=== PATIENT | female | born 1930 | race Caucasian/White ===

== ENCOUNTER → 2016-07-13 | Outpatient (CLI) | payer MEDICARE, OTHER ==
[~2016-07-13] MED LIST: ALBUPOW26 XX; ALL300T PO; ASPI81TA27 PO; CYCL-181 PO; GABA300C PO; MELO-61 PO; MOME200A INH; PRO10T PO; TEMA15CA91 PO; [UNRECOGNIZED DRUG - CODE] EX
[2016-07-13 13:20] VITALS: BP 125/76
[2016-07-13 13:58] VITALS: BP 123/73
[2016-07-13 16:39] LABS: Urine Bilirubin Negative (Negative); Urine Blood Negative /uL (Negative); Urine Color Yellow (Yellow); Urine Glucose Normal (Normal); Urine Ketone Negative (Negative); Urine Nitrite Negative (Negative)
[2016-07-13 17:05] LABS: Albumin 3.1 g/dL (3.4-5.0); BUN/Creatinine Ratio 21.9; Bilirubin, Total 0.4 mg/dL (0.2-1.0); Calcium 8.7 mg/dL (8.5-10.1); Potassium 3.7 mmol/L (3.5-5.1); Total Protein 6.6 g/dL (6.4-8.2)
[2016-07-13 17:08] LABS: INR 1.08 (0.9-1.15); Partial Thromboplastin Time 26.8 sec (22.64-33.71); Prothrombin Time 11.1 sec (9.37-12.3)
[2016-07-13 18:02] LABS: Basophils # (auto) 0 uL; DEFINITIVE VIEW TRANSMISSION; Eosinophils # (auto) 0.1 uL; Lymphocytes # (auto) 0.7 uL; Monocytes # (auto) 0.5 uL
[2016-07-13 18:06] LABS: White Blood Cell 7.1 10^3/uL (4.4-10.8)
[2016-07-13 18:07] LABS: Basophils % (auto) 0.6 % (0.0-2.0); Eosinophils % (auto) 0.8 % (0.0-7.0); Lymphocytes % (auto) 10.3 % (10.0-50.0); Monocytes % (auto) 6.4 % (0.0-12.0); Neutrophils # (auto) 5.8 uL; Neutrophils % (auto) 81.9 % (37.0-80.0)
[2016-07-13 18:08] LABS: Hematocrit 39.7 % (36.0-46.0); Hemoglobin 12.2 g/dL (12.2-16.2); Mean Corpuscular Hemoglobin 29.7 pg (28.0-32.0); Mean Corpuscular Hgb Conc. 30.7 g/dL (32.0-36.0); Mean Corpuscular Volume 96.8 fL (80.0-100.0); Mean Platelet Volume 10.5 fL (7.4-10.4); Platelet Count (auto) 307 10^3/uL (140-450); Red Cell Distribution Width 16.5 % (11.6-16.0)
== END | disposition home or self-care (01) ==
LOC: CHF HDHVI 13:22
PROVIDERS: ATTEND Internal Medicine Cardiovascular Disease
DX: I10 Essential (primary) hypertension (principal); D64.9 Anemia, unspecified; R79.1 Abnormal coagulation profile; N39.0 Urinary tract infection, site not specified
CPT/HCPCS: 36415; 80053; 81003; 85025; 85610; 85730; G0463

== ENCOUNTER → 2016-08-06 | Outpatient (CLI) | payer MEDICARE, OTHER ==
[~2016-08-06] MED LIST changes: +CYANOCOBALAMIN (B-12) 1000 MCG/1 ML VIAL IM ONE; +CYANOCOBALAMIN (B-12) 1000 MCG/1 ML VIAL ONE
[2016-08-06 16:00] VITALS: BP 107/62
[2016-08-06 16:50] VITALS: BP 102/57
== END | disposition home or self-care (01) ==
LOC: Rad HDHVI 14:16
PROVIDERS: ATTEND Internal Medicine Cardiovascular Disease
DX: K57.30 Diverticulosis of large intestine without perforation or abscess without bleeding (principal); J90 Pleural effusion, not elsewhere classified; I51.7 Cardiomegaly; I70.8 Atherosclerosis of other arteries; D64.9 Anemia, unspecified
CPT/HCPCS: 74176; 96372; G0463; J3420